=== PATIENT | male | born 1950 | race Caucasian/White ===

== ENCOUNTER 2022-10-27 20:31 | Emergency (ER) | payer MEDICARE ==
[~2022-10-27] VITALS: Ht 167.6 cm; Wt 86.2 kg
[~2022-10-27 20:31] MED LIST: IBUP-1984 PO
[2022-10-27 20:50] LABS: BASOPHILS % (AUTO) 0.5 % (0-1); EOSINOPHILS # (AUTO) 0.1 X10'3 (0-0.9); EOSINOPHILS % (AUTO) 0.8 % (0-6); HEMATOCRIT 46.3 % (42.0-52.0); HEMOGLOBIN 15.5 g/dl (14.0-17.9); LYMPHOCYTES # (AUTO) 1.6 X10'3 (1.1-4.8); LYMPHOCYTES % (AUTO) 20.3 % (21-51); MEAN CORPUSCULAR HEMOGLOBIN 29.9 PG (27.0-31.0); MEAN CORPUSCULAR HGB CONC 33.5 g/dL (33.0-36.5); MEAN CORPUSCULAR VOLUME 89.3 FL (78-98); MEAN PLATELET VOLUME 7.6 FL (7.4-10.4); MONOCYTES # (AUTO) 0.7 X10'3 (0-0.9); MONOCYTES % (AUTO) 9.2 % (2-12); NEUTROPHILS # (AUTO) 5.5 X10'3 (1.8-7.7); NEUTROPHILS % (AUTO) 69.2 % (42-75); PLATELET COUNT 310 X10'3 (140-440); RED BLOOD COUNT 5.19 X10'6 (4.70-6.10); RED CELL DISTRIBUTION WIDTH 13.8 % (11.5-14.5)
[2022-10-27 21:09] LABS: ALANINE AMINOTRANSFERASE 33 U/L (12-78); ALBUMIN 3.7 G/DL (3.4-5.0); ALKALINE PHOSPHATASE 82 IU/L (46-116); ANION GAP 8 (8-16); BLOOD UREA NITROGEN 12 MG/DL (7-18); CHLORIDE 104 MMOL/L (99-107); CREATININE 0.86 MG/DL (0.60-1.10); POTASSIUM 3.4 MMOL/L (3.5-5.1); SODIUM 139 MMOL/L (135-145); eGFR 88 ML/MIN
[2022-10-27 21:17] LABS: MAGNESIUM 2.1 MG/DL (1.5-2.4)
[2022-10-27 21:20] LABS: ALBUMIN/GLOBULIN RATIO 0.9 (1.1-1.5); ASPARTATE AMINO TRANSFERASE 24 U/L (10-37); BILIRUBIN,TOTAL 0.3 MG/DL (0.1-1.0); GLUCOSE 123 MG/DL (70-104); TOTAL PROTEIN 7.7 G/DL (6.4-8.2)
[2022-10-28] MEDS ORDERED: potassium chloride 10mEq ER tablet PO SCH (02:05)
[2022-10-28] MEDS ORDERED: amLODIPine 5mg tablet PO ONE (02:05)
--- NOTE | 2022-10-28 02:10 | NUR ---
Patient to CT
[2022-10-28 02:27] LABS: CREATINE KINASE 101 U/L (39-308)
[2022-10-28 04:02] VITALS: BP 134/84
== END 2022-10-28 04:06 | disposition home or self-care (01) ==
LOC: ER 20:31
DX: I10 Essential (primary) hypertension (principal); R41.0 Disorientation, unspecified; R07.89 Other chest pain; R06.02 Shortness of breath; G51.0 Bell's palsy
CPT/HCPCS: 36415; 70450; 80053; 82550; 83735; 83880; 84484; 85025; 93005; 99285